=== PATIENT | female | born 1960 | race Caucasian/White ===

== ENCOUNTER 2016-09-09 21:21 | Emergency (ER) | payer OTHER ==
--- NOTE | ~2016-09-09 | ER ---
PATIENT'S NAME: FLOR FERNANDES [facility] AGE: 56 Y [address] ROOM: [place] [id number] LOCATION: [facility] ADMIT DATE: 09/09/2016 ER/Outpatient Report DISCHARGE DATE: 09/09/2016 FAMILY PHYSICIAN: Hu Funk MD ATTENDING PHYSICIAN: Tez Carlin Time of Arrival: 3 hours. Time of Evaluation: 3 hours. CHIEF COMPLAINT: Cut finger. HISTORY OF PRESENT ILLNESS: The patient states just prior to arrival, she cut her left middle finger with a knife while cutting a burns paiute up. She states that she did hold pressure to it, but could not get the bleeding to calm down. She did try to put Super Glue on it, but it continued to bleed. She denies having any numbness or tingling of her finger, denies any weakness of her finger. ALLERGIES: SHE HAS NO KNOWN ALLERGIES. CURRENT MEDICATIONS: On her chart and reviewed by me. PAST MEDICAL HISTORY: Lupus. PAST SURGERIES: Eye surgery, hysterectomy, and bladder sling. SOCIAL HISTORY: Denies use of tobacco, drugs, or alcohol. Presents to the ER accompanied by her . Last tetanus shot was 5 years ago. PRIMARY PROVIDER: Dr. Funk. REVIEW OF SYSTEMS: All negative other than those mentioned in the HPI. PHYSICAL EXAMINATION: VITAL SIGNS: She weighed 62.9 kg. Blood pressure is 175/85, pulse is 78, PATIENT'S NAME: FLOR FERNANDES [facility] AGE: 56 Y [address] ROOM: [place] [address] LOCATION: [facility] ADMIT DATE: 09/09/2016 ER/Outpatient Report DISCHARGE DATE: 09/09/2016 FAMILY PHYSICIAN: Hu Funk MD ATTENDING PHYSICIAN: Tez Carlin respirations 16, and O2 saturation is 96% on room air. GENERAL: She is awake, alert, and oriented x4. SKIN: [place], warm, and dry. RESPIRATIONS: Even and nonlabored. EXTREMITIES: The patient has a 1 cm laceration of the left middle finger, dorsal aspect. It does include a little bit into the side of the nail. It is a flap- type cut. She has good sensation to the tip of her finger. LUNGS: Lung sounds are clear throughout. HEART: Regular rate and rhythm. NEUROLOGIC: The patient walked in with a steady even gait. EMERGENCY ROOM COURSE: Laceration was anesthetized with 1% plain Xylocaine, then cleansed well with saline and Betadine. It was closed with 4-0 Ethilon x2 stitches. The patient tolerated the procedure well. Bleeding was well controlled. Tdap immunization was given. Finger dressing was applied. IMPRESSION: Finger laceration, simple closure. PLAN: Home, rest. Keep the area clean and dry. Wound instructions were given to the patient. She is to follow up with Dr. Funk in 2 to 3 days as needed and have the stitches removed in 7 to 10 days. She and her verbalized understanding. NEO MANJARREZ APRN FOR MD JOCELYN NGUYEN/cheryle /[id number] d: 09/10/16 0134 t: 09/10/16 1809, OUTPATIENT REPORT
== END 2016-09-09 21:54 | disposition disaster alternative care site (69) ==
LOC: GACC 21:21
PROC: 0HQGXZZ Repair Left Hand Skin, External Approach (ICD-10-PCS; principal; 2016-09-09)
DX: S61.313A Laceration without foreign body of left middle finger with damage to nail, initial encounter (principal); Z23 Encounter for immunization; Z98.890 Other specified postprocedural states; Z79.82 Long term (current) use of aspirin; Z79.899 Other long term (current) drug therapy; Z90.710 Acquired absence of both cervix and uterus; W26.0XXA Contact with knife, initial encounter